=== PATIENT | female | born 1985 | race Caucasian/White ===

== ENCOUNTER 2017-03-05 10:11 | Emergency (ER) | payer SELFPAY ==
--- NOTE | 2017-03-05 11:09 | RAD ---
RIGHT FOREARM TWO VIEWS: History: Injury, right forearm pain. FINDINGS: The right radius and ulna are intact. POS: H
== END 2017-03-05 11:22 | disposition home or self-care (01) ==
LOC: NAV ERS 10:11
DX: S56.911A Strain of unspecified muscles, fascia and tendons at forearm level, right arm, initial encounter (principal); V00.121A Fall from non-in-line roller-skates, initial encounter; Y93.51 Activity, roller skating (inline) and skateboarding

== ENCOUNTER 2018-01-01 17:50 | Emergency (ER) | payer SELFPAY ==
[2018-01-01] MEDS ORDERED: Lidocaine 1% 20 ML MDV ONE (17:59)
[2018-01-01] MEDS ORDERED: Adacel (T-DAP) 0.5 ML VIAL ONE (18:17)
== END 2018-01-01 18:39 | disposition home or self-care (01) ==
LOC: NAV ERS 17:50
DX: L02.214 Cutaneous abscess of groin (principal); F17.210 Nicotine dependence, cigarettes, uncomplicated
CPT/HCPCS: 10060; 87070; 87076; 87205; 90471; 90715; J2001

== ENCOUNTER 2018-01-05 08:57 | Emergency (ER) | payer SELFPAY | END 2018-01-05 10:10 | disposition home or self-care (01) | LOC: NAV ERS 08:57 | DX: Z48.817 Encounter for surgical aftercare following surgery on the skin and subcutaneous tissue (principal); F17.210 Nicotine dependence, cigarettes, uncomplicated; Z79.899 Other long term (current) drug therapy | CPT/HCPCS: 99282 ==

== ENCOUNTER 2018-01-07 07:45 | Emergency (ER) | payer SELFPAY ==
[2018-01-07] MEDS ORDERED: AMOXicillin 250 MG CAP ONE (08:07)
== END 2018-01-07 08:10 | disposition home or self-care (01) ==
LOC: NAV ERS 07:45
DX: L03.116 Cellulitis of left lower limb (principal); F17.210 Nicotine dependence, cigarettes, uncomplicated
CPT/HCPCS: 99282